=== PATIENT | female | born 1990 | race Caucasian/White ===

== ENCOUNTER 2017-11-11 09:05 | Emergency (ER) | payer MEDICAID, OTHER ==
--- NOTE | 2017-11-11 09:32 | Emergency Department Record ---
History of Present Illness - General Chief complaint: Vaginal bleeding Stated complaint: VAG BLEEDING, Time Seen by Provider: 11/11/17 09:21 Source: Patient Mode of Arrival: Ambulatory Limitations: No limitations - History of Present Illness Initial comments: The patient is here due to vaginal bleeding for 3 days like a normal menses. She denies any AP, back pain, dysuria, or pelvic pain. She did take a home preg test 3 days ago and it was positive. The patient states her last menses was 5 weeks ago. She was on her way to her family doctors office and was told to go to the ER to be safe. MD Complaint: Vaginal bleeding Onset/Timin -: Days(s) LMP Date: 10/04/17 Gestational Age (wks) based on LMP: 5 - Related Data Home Medications Medication Instructions Recorded Confirmed Last Taken Loratadine [Claritin] 10 mg PO DAILY 11/11/17 11/11/17 Unknown Allergies Allergy/AdvReac Type Severity Reaction Status Date / Time Penicillins Allergy HIVES Verified 08/15/15 23:34 Travel Screening - Travel/Exposure Within Last 30 Days Have you traveled within the last 30 days?: No - Travel/Exposure Within Last Year Have you traveled outside the [place] in the last year?: No - Additonal Travel Details Have you been exposed to anyone with a communicable illness?: No - Travel Symptoms Symptom Screening: None Review of Systems Constitutional: Denies: Chills, Fever Eyes: Denies: Eye discharge ENT: Denies: Congestion Respiratory: Denies: Cough, Dyspnea Past Medical History - SOCIAL HISTORY Smoking Status: Never smoker Alcohol Use: Occasional Drug Use: None - RESPIRATORY Hx Respiratory Disorders: No - CARDIOVASCULAR Hx Cardio Disorders: No - NEURO Hx Neuro Disorders: No - GI Hx GI Disorders: No - Hx Genitourinary Disorders: Yes Comment:: HPV- precancerous cells -cervix - ENDOCRINE Hx Endocrine Disorders: No - MUSCULOSKELETAL Hx Musculoskeletal Disorders: No - PSYCH Hx Psych Problems: No - HEMATOLOGY/ONCOLOGY Hx Hematology/Oncology Disorders: No Family Medical History Any Significant Family History?: No Family Hx Comment (NOT TO BE USED IN PLACE OF ITEMS BELOW): Dad w/ hemachromotosis Hx Cancer: Grandparents Hx Diabetes: Grandparents Hx HTN: Father Physical Exam - General General Appearance: Alert, Oriented x3, Cooperative, No acute distress - Head Head exam: Atraumatic, Normocephalic, Normal inspection - Eye Eye exam: Normal appearance, PERRL - Neck Neck exam: Normal inspection, Full ROM. negative: Tenderness - Respiratory Respiratory exam: Normal lung sounds bilaterally. negative: Respiratory distress - Cardiovascular Cardiovascular Exam: Regular rate, Normal rhythm, Normal heart sounds - GI/Abdominal GI/Abdominal exam: Soft, Normal bowel sounds. negative: Rebound, Rigid, Tenderness - exam: Deferred (The patient refused the pelvic exam.) - Extremities Extremities exam: Normal inspection, Full ROM, Normal capillary refill. negative: Tenderness Course Vital Signs 11/11/17 09:16 Temperature 98.7 F Pulse Rate 91 H Respiratory 17 Rate Blood Pressure 107/80 Pulse Ox 98 - Reevaluation(s) Reevaluation #1: The patient is doing very well at this time. She denies any pain or discomfort and is waiting for her US. The patient's RH status is Pos so she does not need Rho Judah. 11/11/17 11:20 Reevaluation #2: The patient is doing well and is resting with no pain or discomfort and states she is only having mild spotting at this time. I did explain to the patient that her US did not help us determine if she has an IUP but since her HCG is not 1200 it was unlikely to do so. Due to that fact she is to proceed home with pelvic rest instructions and to return to the ER on Sat for repeat HCG lab testing. 11/11/17 12:37 11/11/17 12:39 Medical Decision Making - Data Complexity MDM Data: Labs Ordered and/or Reviewed, X-Ray Ordered and/or Reviewed - Lab Data Result diagrams: 11/11/17 09:40 11/11/17 09:40 - Radiology Data Radiology results: Report reviewed (Pelvic US: Neg definitive IUP but no evidence for ectopic or free fluid. Lucency in endometrium due to possible early IUP.) Disposition Disposition: Discharge Clinical Impression: Threatened in first trimester Disposition: Home, Self-Care Condition: (2) Stable Instructions: Threatened Miscarriage (ED) Additional Instructions: Pelvic rest and only use Tylenol for pain. Please return to the ER Sat afternoon for repeat lab testing. Return sooner for any worsening pain, bleeding , fever, or vomiting. Forms: Patient Portal Access Time of Disposition: 12:36 Quality - Quality Measures Quality Measures: (14-50yr) - : US Determination Quality Measure: Measure #254: US Determination of Location View Details: Yes US Determination of Location: < Trans-Abdominal or Trans-Vaginal US Performed > [G8806] - : Rhogam Quality Measure: Measure #255: Rhogam for Rh-Negative Women ICD10 Codes Entered: Yes View Details: Yes Rhogam for Rh-Negative Women at Risk: Rh-immunoglobulin NOT Ordered [ G8811] Reason for not prescribing Rhogam: Other - Blood Pressure Screening View Details: Yes Does Patient Have Any of the Following: No Blood Pressure Classification: Pre-Hypertensive BP Reading Systolic Measurement: 107 Diastolic Measurement: 80 Screening for High Blood Pressure: < Pre-Hypertensive BP, F/U Documented > [ G8950] Pre-Hypertensive Follow-up Interventions: Referral to alternative/primary care provider.
[2017-11-11 09:56] LABS: BASO % 0.4 % (0-6); EOS % 1.9 % (0-6); GRAN % 56.3 % (47-80); HEMATOCRIT 43.3 % (35.0-47.0); HEMOGLOBIN 14.3 gm/dl (11.6-16.0); LYMPH % 30.3 % (16-45); MEAN CELL VOLUME 94.3 fl (81-97); MEAN CORPUSCULAR HEMOGLOBIN 31.2 pg (27-33); MEAN PLATELET VOLUME 11.1 fl (7.4-10.4); MONO % 11.1 % (0-9); PLATELET COUNT 263 K/uL (130-400); RED BLOOD COUNT 4.59 M/uL (3.80-5.40); RED CELL DISTRIBUTION WIDTH 13.1 % (11.5-14.5); WHITE BLOOD COUNT W/O DIFF 8.4 K/uL (4.2-12.2)
[2017-11-11 09:59] LABS: BLOOD UREA NITROGEN 10 mg/dL (6-20); CREATININE 0.7 mg/dL (0.5-0.9); EST GLOMERULAR FILTRATION RATE > 60 mL/min
[2017-11-11 10:00] LABS: TOTAL PROTEIN 7.5 g/dL (6.6-8.7)
[2017-11-11 10:02] LABS: GLUCOSE,RANDOM 97 mg/dL (74-109)
[2017-11-11 10:05] LABS: ALB/GLOB RATIO 1.3 (1.1-1.8); ALBUMIN 4.2 g/dL (4.0-5.0); ALKALINE PHOSPHATASE 60 U/L (35-104); ALT/SGPT 12 U/L (<33); AST/SGOT 17 U/L (10.0-35.0)
--- NOTE | 2017-11-12 08:19 | ULTRASOUND REPORT ---
EXAM: FIRST TRIMESTER ULTRASOUND (LESS THAN 13 WEEKS) HISTORY: VAGINAL BLEEDING, . TECHNIQUE: Transvaginal and transabdominal sonographic evaluation of the pelvis was performed using king scale imaging with the addition of color flow Doppler and spectral analysis. Comparison: None. FINDINGS: The uterus measures 9.7 x 3.9 x 1.8 cm. There is prominence of the endometrial stripe. There is a small sonolucency measuring 3 mm. This is too small to further characterize. No pole is appreciated. The ovaries are normal in size. There is normal arterial and venous flow. No free fluid in the cul-de-sac. IMPRESSION: SMALL SONOLUCENCY WITHIN THE ENDOMETRIUM MEASURING 3 MM. THIS IS INDETERMINATE AT THIS TIME. FINDINGS MAY REPRESENT EARLY . ECTOPIC NOT ENTIRELY EXCLUDED. CONTINUE SHORT TERM FOLLOW-UP IMAGING IS RECOMMENDED. JOB NUMBER: [id number] MTDD
== END 2017-11-11 12:46 | disposition home or self-care (01) ==
LOC: ER 09:05
DX: O20.0 Threatened abortion (principal); Z3A.01 Less than 8 weeks gestation of pregnancy
CPT/HCPCS: 76801; 76817; 80053; 84702; 84703; 85025; 86901; 99283; 99284

== ENCOUNTER 2017-11-13 08:46 | Emergency (ER) | payer MEDICAID ==
--- NOTE | 2017-11-13 09:07 | Emergency Department Record ---
History of Present Illness - General Chief Complaint: Recheck - Other Stated Complaint: RECHECK Time Seen by Provider: 11/13/17 08:50 Source: Patient Mode of arrival: Ambulatory Limitations: No limitations - History of Present Illness Initial Comments: The patient is here for recheck due to having a threatened . She was in the ED 2 days ago due to being 5 weeks and spotting for 3 days. She had a quant HCG of just over 1000 and an US that possibly demonstrated a very early IUP. Since she states the spotting has stopped and she denies any pelvic pain or cramping and is doing a lot better. Now she is here for a repeat Bhcg. Complaint: Other Onset/Timin -: Week(s) - Related Data Allergies Allergy/AdvReac Type Severity Reaction Status Date / Time Penicillins Allergy HIVES Verified 08/15/15 23:34 Travel Screening - Travel/Exposure Within Last 30 Days Have you traveled within the last 30 days?: No - Travel/Exposure Within Last Year Have you traveled outside the [place] in the last year?: No - Additonal Travel Details Have you been exposed to anyone with a communicable illness?: No - Travel Symptoms Symptom Screening: None Review of Systems Constitutional: Denies: Chills, Fever Past Medical History - SOCIAL HISTORY Smoking Status: Never smoker Alcohol Use: None Drug Use: None - RESPIRATORY Hx Respiratory Disorders: No - CARDIOVASCULAR Hx Cardio Disorders: No - NEURO Hx Neuro Disorders: No - GI Hx GI Disorders: No - Hx Genitourinary Disorders: Yes Comment:: HPV- precancerous cells -cervix - ENDOCRINE Hx Endocrine Disorders: No - MUSCULOSKELETAL Hx Musculoskeletal Disorders: No - PSYCH Hx Psych Problems: No - HEMATOLOGY/ONCOLOGY Hx Hematology/Oncology Disorders: No Family Medical History Any Significant Family History?: Yes Family Hx Comment (NOT TO BE USED IN PLACE OF ITEMS BELOW): Dad w/ hemachromotosis Hx Cancer: Grandparents Hx Diabetes: Grandparents Hx HTN: Father Physical Exam - General General Appearance: Alert, Oriented x3, Cooperative, No acute distress - Head Head exam: Atraumatic, Normocephalic, Normal inspection - Eye Eye exam: Normal appearance, PERRL - Neck Neck exam: Normal inspection, Full ROM. negative: Tenderness - Respiratory Respiratory exam: Normal lung sounds bilaterally. negative: Respiratory distress - Cardiovascular Cardiovascular Exam: Regular rate, Normal rhythm, Normal heart sounds - GI/Abdominal GI/Abdominal exam: Soft, Normal bowel sounds. negative: Tenderness - Extremities Extremities exam: Normal inspection, Full ROM, Normal capillary refill. negative: Tenderness Course Vital Signs 11/13/17 09:02 Temperature 98.3 F Pulse Rate 89 Respiratory 18 Rate Blood Pressure 113/77 Pulse Ox 98 - Reevaluation(s) Reevaluation #1: I did discuss the repeat HCG with the patient and the fact that it is progressing normally. She is to F/U with OB next week. 11/13/17 09:35 Disposition Disposition: Discharge Clinical Impression: Threatened in first trimester Disposition: Home, Self-Care Condition: (2) Stable Instructions: Threatened Miscarriage (ED) Additional Instructions: Please see OB next week for recheck and continue the pelvic rest precautions. Return to the ER for any worsening bleeding, pain, or fever. Forms: Patient Portal Access Time of Disposition: 09:29 Quality - Quality Measures Quality Measures: (14-50yr) - : US Determination Quality Measure: Measure #254: US Determination of Location ICD10 Codes Entered: Yes View Details: Yes US Determination of Location: Trans-Abdominal or Trans-Vaginal US NOT Performed [G8808] Reason for No US: Documented Intrauterine - : Rhogam Quality Measure: Measure #255: Rhogam for Rh-Negative Women ICD10 Codes Entered: Yes View Details: Yes Rhogam for Rh-Negative Women at Risk: Rh-immunoglobulin NOT Ordered [ G8811] Reason for not prescribing Rhogam: Other - Blood Pressure Screening Does Patient Have Any of the Following: No Blood Pressure Classification: Normal BP Reading Systolic Measurement: 113 Diastolic Measurement: 77 Screening for High Blood Pressure: < Normal BP, F/U Not Required > [G8783]
== END 2017-11-13 09:35 | disposition home or self-care (01) ==
LOC: ER 08:46
DX: O20.0 Threatened abortion (principal); Z3A.01 Less than 8 weeks gestation of pregnancy
CPT/HCPCS: 84702; 99282

== ENCOUNTER 2017-11-19 09:37 | Emergency (ER) | payer MEDICAID ==
--- NOTE | 2017-11-19 09:53 | Emergency Department Record ---
History of Present Illness - General Chief complaint: complication Stated complaint: ABD CRAMPING Time Seen by Provider: 11/19/17 09:43 Source: Patient Mode of Arrival: Ambulatory Limitations: No limitations Travel/Exposure to [place] Within 21 Days of Symptoms: No - History of Present Illness Initial comments: 27 yo female in her first trimester presents with recurrent pelvic pain with some brownish discharge. She was seen on the and in the ED. Her quant totals were 1043 ad 2604 respectively. US demonstrated a 3mm sonolucency to small to characterize. She developed some sharp pain in the right pelvis with radiation to the leg yesterday evening. No bleeding. She does have some brownish discharge. This is the patient's 4th . She has 2 live births without complication and on elective (first ). She was documented to be Rh Positive on the prior visit. MD Complaint: Other (Pelvic pain ) -: Days(s) (1) Location: Pelvis Radiation: RLQ Severity: Moderate Quality: Sharp Consistency: Intermittent Improves with: None Worsens with: None Associated symptoms: Denies other symptoms Vaginal bleeding: None - Related Data Previous Rx's Medication Instructions Recorded Cephalexin [Keflex] 500 mg PO TID #21 cap 11/19/17 Metronidazole [Flagyl] 500 mg PO BID #14 tablet 11/19/17 Allergies Allergy/AdvReac Type Severity Reaction Status Date / Time Penicillins Allergy HIVES Verified 08/15/15 23:34 Review of Systems Constitutional: Denies: Chills, Fever, Weakness Eyes: Denies: Eye discharge ENT: Denies: Congestion, Throat pain Respiratory: Denies: Cough, Dyspnea Cardiovascular: Denies: Chest pain, Syncope Endocrine: Denies: Fatigue Gastrointestinal: Reports: As per HPI, Abdominal pain. Denies: Diarrhea, Nausea , Vomiting Genitourinary: Reports: As per HPI, Abnormal menses. Denies: Dysuria, Frequency , Hematuria, Retention, Urgency Musculoskeletal: Denies: Arthralgia, Back pain, Neck pain Skin: Denies: Bruising, Change in color, Rash Neurological: Denies: Headache, Numbness, Weakness Psychiatric: Denies: Anxiety Hematological/Lymphatic: Denies: Easy bleeding, Easy bruising Past Medical History - SOCIAL HISTORY Smoking Status: Never smoker Drug Use: None - RESPIRATORY Hx Respiratory Disorders: No - CARDIOVASCULAR Hx Cardio Disorders: No - NEURO Hx Neuro Disorders: No - GI Hx GI Disorders: No - Hx Genitourinary Disorders: Yes Comment:: HPV- precancerous cells -cervix - ENDOCRINE Hx Endocrine Disorders: No - MUSCULOSKELETAL Hx Musculoskeletal Disorders: No - PSYCH Hx Psych Problems: No - HEMATOLOGY/ONCOLOGY Hx Hematology/Oncology Disorders: No Family Medical History Family Hx Comment (NOT TO BE USED IN PLACE OF ITEMS BELOW): Dad w/ hemachromotosis Hx Cancer: Grandparents Hx Diabetes: Grandparents Hx HTN: Father Physical Exam - General General Appearance: Alert, Oriented x3, Cooperative, No acute distress Limitations: No limitations - Head Head exam: Atraumatic, Normal inspection - Eye Eye exam: Normal appearance - ENT ENT exam: Normal exam Ear exam: Normal external inspection Nasal Exam: Normal inspection Mouth exam: Normal external inspection - Neck Neck exam: Normal inspection - Respiratory Respiratory exam: Normal lung sounds bilaterally. negative: Respiratory distress - Cardiovascular Cardiovascular Exam: Regular rate, Normal rhythm, Normal heart sounds - GI/Abdominal GI/Abdominal exam: Soft, Tenderness (mild deep right pelvix) - Rectal Rectal exam: Deferred - exam: Adnexal tenderness (R), Normal external exam, Normal speculum exam, Vaginal discharge (thin white). negative: Abnormal external exam, Adnexal mass (L), Adnexal mass (R), Adnexal tenderness (L), Cervical discharge, cervical motion tenderness, Vaginal bleeding - Extremities Extremities exam: Normal inspection, Full ROM, Normal capillary refill. negative: Tenderness - Back Back exam: Reports: Normal inspection, Full ROM. Denies: Muscle spasm, Rash noted, Tenderness - Neurological Neurological exam: Alert, Normal gait, Oriented X3 - Psychiatric Psychiatric exam: Normal affect, Normal mood - Skin Skin exam: Dry, Intact, Normal color, Warm Course - Reevaluation(s) Reevaluation #1: 11/19/17 10:35 The CBC was reviewed. No acute changes 11/19/17 10:52 Clue cells noted on the wet prep UA with trace LE, 6-10 WBC, few bacteria 11/19/17 11:37 The Quant is >10,000 The prelim US demonstrates single gestation at 6w1d. We discussed the clue cells, pain, threatened miscarriage, home care and reasons to return to the ED. Medical Decision Making - Lab Data Result diagrams: 11/19/17 10:00 Disposition Disposition: Discharge Clinical Impression: Threatened in first trimester, Bacterial vaginosis Disposition: Home, Self-Care Condition: (1) Good Instructions: (ED), Bacterial Vaginosis (ED) Additional Instructions: Follow up with your OB on Wednesday as scheduled Be seen if you have uncontrolled pain, bleeding or any new concerns Take the antibiotic as directed for the clue cells on the pelvic examination You HCG today was reported at >10,1000 Your US today demonstrated a gestational age of 6 weeks and 1 day. Prescriptions: Cephalexin [Keflex] 500 mg PO TID #21 cap Metronidazole [Flagyl] 500 mg PO BID #14 tablet Forms: Patient Portal Access Time of Disposition: 11:38 Quality - Quality Measures Quality Measures: N/A, (14-50yr) - : US Determination Quality Measure: Measure #254: US Determination of Location US Determination of Location: < Trans-Abdominal or Trans-Vaginal US Performed > [G8806] - : Rhogam Quality Measure: Measure #255: Rhogam for Rh-Negative Women ICD10 Codes Entered: Yes Rhogam for Rh-Negative Women at Risk: Rh-immunoglobulin NOT Ordered [ G8811] Reason for not prescribing Rhogam: Other (Rh +) - Blood Pressure Screening Does Patient Have Any of the Following: No Blood Pressure Classification: Normal BP Reading Systolic Measurement: 117 Diastolic Measurement: 79 Screening for High Blood Pressure: < Normal BP, F/U Not Required > [G8783]
[2017-11-19 10:25] LABS: URINE APPEARANCE CLEAR; URINE BILIRUBIN NEGATIVE (NEGATIVE); URINE BLOOD MODERATE (NEGATIVE); URINE COLOR YELLOW; URINE GLUCOSE (UA) NEGATIVE (NEGATIVE); URINE KETONE NEGATIVE (NEGATIVE); URINE LEUKOCYTE ESTERASE SMALL (NEGATIVE); URINE NITRITE NEGATIVE (NEGATIVE); URINE PROTEIN NEGATIVE (NEGATIVE); URINE UROBILINOGEN 0.2 E.U./dL (0.20 - 1.00)
[2017-11-19 10:25] LABS: BASO % 0.3 % (0-6); EOS % 1.9 % (0-6); GRAN % 57.3 % (47-80); HEMATOCRIT 43.9 % (35.0-47.0); HEMOGLOBIN 14.2 gm/dl (11.6-16.0); LYMPH % 30.8 % (16-45); MEAN CELL VOLUME 95.6 fl (81-97); MEAN CORPUSCULAR HEMOGLOBIN 30.9 pg (27-33); MEAN CORPUSCULAR HGB CONC 32.3 g/dl (32-36); MEAN PLATELET VOLUME 11.1 fl (7.4-10.4); MONO % 9.7 % (0-9); PLATELET COUNT 271 K/uL (130-400); RED BLOOD COUNT 4.59 M/uL (3.80-5.40); RED CELL DISTRIBUTION WIDTH 13.1 % (11.5-14.5); WHITE BLOOD COUNT W/O DIFF 8.9 K/uL (4.2-12.2)
[2017-11-19 10:44] LABS: URINE RBC 0 - 2 (NONE SEEN)
[2017-11-19 10:45] LABS: URINE BACTERIA FEW
--- NOTE | 2017-11-20 21:19 | ULTRASOUND REPORT ---
EXAM: ULTRASOUND OB PELV W TV - EARLY (4-13wks) HISTORY: RIGHT-SIDED PELVIC CRAMPING SINCE LAST NIGHT. SPOTTING FOR THREE WEEKS. TECHNIQUE: Transabdominal ultrasound examination of the pelvis is performed. Transvaginal scanning is also performed for improved visualization of the uterus and adnexa. COMPARISON: ultrasound with transvaginal imaging dated 11/11/2017. FINDINGS: TRANSABDOMINAL FINDINGS: The uterus is normal in position and smoothly marginated. It measures 8.1 x 4.2 x 5.6 cm. No myometrial mass is demonstrated. There is a small intrauterine gestational sac identified, better visualized on transvaginal imaging, with uniform-appearing decidual reaction. No evidence of implantation bleed. The left ovary is visualized and normal in appearance measuring 2.4 x 2.8 x 1.6 cm. The right ovary is visualized and normal in appearance measuring 2.9 x 1.0 x 1.4 cm. Blood flow is demonstrated within the left ovary with color Doppler and duplex Doppler evaluation. Spectral analysis demonstrates venous and arterial waveforms within the left ovary. Blood flow is not well demonstrated transabdominally within the right ovary. The mean gestational sac size of 1.12 cm corresponds to a gestational age of 5 weeks, 2 days. There is a crown-rump length of 2.7 cm corresponding to a gestational age of 5 weeks, 6 days. TRANSVAGINAL FINDINGS: No myometrial mass. A single intrauterine gestational sac with uniform decidual reaction is again identified with pole and yolk sac within. The pole measures 2.2 mm corresponding to a gestational age of 5 weeks, 5 days. On real-time imaging, cardiac activity is visualized, though heart rate measurement was difficult to obtain. The yolk sac measures 4 mm in diameter. Each ovary is visualized and normal in appearance with small follicles in each. The right ovary measures 2.2 x 2.6 x 2.1 cm and the left ovary measures 2.1 x 2.1 x 2.9 cm. Blood flow is demonstrated in each ovary with color Doppler and duplex Doppler evaluation. Spectral analysis demonstrates venous and arterial waveforms in each ovary. No adnexal mass or free pelvic fluid. IMPRESSION: 1. SINGLE LIVE INTRAUTERINE WITH APPROXIMATE GESTATIONAL AGE PER CROWN-RUMP LENGTH OF 5 WEEKS, 5 DAYS. NO IMPLANTATION BLEED. CARDIAC ACTIVITY VISUALIZED ON REAL-TIME IMAGING, THOUGH HEART RATE MEASUREMENT WAS DIFFICULT TO OBTAIN. 2. BLOOD FLOW IN EACH OVARY. JOB NUMBER: [id number] MTDD
[2017-11-22 20:29] LABS: GC SPECIMEN TYPE Vaginal
== END 2017-11-19 12:19 | disposition home or self-care (01) ==
LOC: ER 09:37
DX: O20.0 Threatened abortion (principal); O23.591 Infection of other part of genital tract in pregnancy, first trimester; N76.0 Acute vaginitis; Z3A.01 Less than 8 weeks gestation of pregnancy
CPT/HCPCS: 99284 ×2; 85025; 84702; 81001; 76817; 76801; Q0111; 87210